=== PATIENT | female | born 1975 | race Caucasian/White ===

== ENCOUNTER 2019-06-03 11:22 | Emergency (ER) | payer BC ==
--- OUTSIDE RECORDS SUMMARY | 2019-06-03 11:57 | XMS REPORT | Continuity of Care Document ---
:1975 External Reference #:[id number] Author Name Shady Mcdonnell M.D. Address [address] [facility] [address] [place] [address] Care Team Providers Name Role Phone Dany/Ilir [place] - Physical Care Team Information Catalogue Compiler [phone] Therapist Temo Manzo Md - Care Team Information Catalogue Compiler [phone] Neurological Surgery Problems Active Problems Provider Date Disorder of lipid metabolism Shady Mcdonnell M.D. Onset: 01/31/2006 Impaired fasting glycaemia Shady Mcdonnell M.D. Onset: 06/17/2009 Dysthymia Shady Mcdonnell M.D. Onset: 06/22/2012 Generalized anxiety disorder Shady Mcdonnell M.D. Onset: 06/22/2012 Morbid obesity Shady Mcdonnell M.D. Onset: 06/22/2012 Social History Type Date Description Comments Sex Unknown Tobacco Use Start: Unknown Tobacco Of Any Kind Denies Use Tobacco Use Reviewed: 04/21/19 Denies Cigarette Use Smoking Status Reviewed: 04/21/19 Denies Cigarette Use ETOH Use Currently consumes 1 glass wine/night, alcohol more than that ~monthly. Sun Exposure moderate amount of sun exposure Sun Exposure Uses sunscreen Seat Belt/Car Seat always uses seat belt Allergies, Adverse Reactions, Alerts Description No Known Drug Allergies Medications Active Medications SIG Qnty Indications Ordering Date Provider Metronidazole apply twice a day 45units L71.0 Sathya, 06/15/2017 0.75% to affected areas Lewis Caruso Cream on face (for perioral dermatitis or acne rosacea) Multivitamins 1 by mouth every Unknown 08/16/2014 Capsules day Sertraline HCL Take One Tablet By 30tabs F41.1 Sathya, 02/20/2012 100mg Mouth Every Day Lewis Caruso Tablets For Mood F34.1 Medications Administered in Office Medication SIG Qnty Indications Ordering Provider Date TB Intradermal Test Shady Mcdonnell M.D. 12/31/2003 Injection Immunizations CPT Code Status Date Vaccine Lot # [id number] Given 02/21/2018 Influenza Virus Vaccine, Quadrivalent, Split, [id number] Preservative Free [id number] Given 10/26/2016 Influenza Virus Vaccine, Quadrivalent, Split, [id number] Preservative Free 07891 Given 01/18/2016 Influenza Virus Vaccine, Quadrivalent, Split, [id number] Preservative Free 43856 Given 12/21/2012 Flu, Split Virus 3Yrs [id number] 11999 Given 12/08/2011 Flu, Split Virus 3Yrs [id number] 81952 Given 02/09/2010 Adacel or Boostrix, [id number] 17356 Given 03/08/2001 Flu, Split Virus 3Yrs Vital Signs Date Vital Result Comment 04/21/2019 8:57am BP Systolic 122 mmHg BP Diastolic 80 mmHg Height 63.5 inches 5'3.50" Weight 212.00 lb BMI (Body Mass Index) 37.0 kg/m2 10/19/2018 4:16pm BP Systolic 124 mmHg BP Diastolic 80 mmHg Height 63 inches 5'3" Weight 202.00 lb BMI (Body Mass Index) 35.8 kg/m2 Results Test Acquired Date Facility Test Result H/L Range Note Laboratory test finding 04/21/2019 In House Hemoglobin A1c 5.4 Procedures Date Code Description Status 04/18/2018 [id number] Mammogram Completed Medical Devices Description No Information Available Encounters Description No Information Available Assessments Date Code Description Provider 04/21/2019 R73.01 Impaired fasting glucose Shady Mcdonnell M.D. 04/21/2019 F41.1 Generalized anxiety disorder Shady Mcdonnell M.D. 04/21/2019 E66.9 Obesity, unspecified Shady Mcdonnell M.D. Plan of Treatment 04/21/2019 - Shady Mcdonnell M.D.R73.01 Impaired fasting glucoseComments:A1c 5.4%F41.1 Generalized anxiety disorderFollow up:RTO 6 months w/ A1cE66.9 Obesity , unspecifiedComments:COunseled re diet, importance of not bringing unhealthy snacks in to the house. Encouraged her to consider participationg in OA. Functional Status Description No Information Available Mental Status Description No Information Available Referrals Description No Information Available
--- NOTE | 2019-06-03 12:01 | UC ---
Complaint Female HPI - HPI Summary HPI Summary: 43 yo woman with 3 day hx of cloudy urine, with increasing dysuria and frequency the following day. She had a positive home test for UTI using a kit obtained from the pharmacy, and contacted her OB --started Macrobid on 06/01/19 without relief of symptoms following 2 days of treatment. --onset of fever evening of 05/31 with temp up to 103 --persistent fever which responds to acetaminophen. --has persistent back pain and late dysuria; back pain is bilateral and symmetrical No other focus of infection, no respiratory symptoms. Feels nauseated but has not vomited, decreased appetite, no diarrhea. - History Of Current Complaint Stated Complaint: URINARY Time Seen by Provider: 06/03/19 12:00 Hx Obtained From: Patient Hx Last Menstrual Period: 01/03/17 Onset/Duration: Gradual Onset, Lasting Days - 4 Timing: Intermittent Severity Initially: Mild Severity Currently: Moderate Character: Dull - ache in low back Aggravating Factor(s): Urination - late dysuria Associated Signs And Symptoms: Positive: Vaginal Discharge - had mild irritation externally yesterday and she has used external nystatin., Nausea. Negative: Vomiting(# Of Episodes =) - Risk Factors Ectopic Risk Factor: Negative - Allergies/Home Medications Allergies/Adverse Reactions: Allergies Allergy/AdvReac Type Severity Reaction Status Date / Time No Known Allergies Allergy Verified 06/03/19 12:16 Home Medications: Home Medications Sertraline* [Zoloft*] 100 mg PO DAILY 05/24/15 [History Confirmed 06/03/19] Nitrofurantoin Monohyd/M-Cryst [Macrobid 100 mg Capsule] 1 cap BID 06/03/19 [ History Confirmed 06/03/19] Sulfamethox/Trimethoprim DS* [Bactrim DS 800/160 TAB*] 1 tab PO BID #14 tab [Rx] PMH/Surg Hx/FS Hx/Imm Hx Previously Healthy: Yes Psychological History: Anxiety, Depression - Surgical History Surgical History: Yes Surgery Procedure, Year, and Place: C-SECTIONS -3. D&C - Family History Known Family History: Positive: Cardiac Disease, Hypertension, Diabetes - Social History Occupation: Employed Full-time - does home daycare Lives: With Family Alcohol Use: Occasionally Substance Use Type: None Smoking Status (MU): Never Smoked Tobacco Type: Cigarettes Have You Smoked in the Last Year: No When Did the Patient Quit Smoking/Using Tobacco: 15 YRS AGO - Immunization History Most Recent Influenza Vaccination: NOT IN Review of Systems All Other Systems Reviewed And Are Negative: Yes Constitutional: Positive: Fever, Chills Skin: Positive: Negative Eyes: Positive: Negative ENT: Positive: Negative Respiratory: Positive: Negative. Negative: Shortness Of Breath, Cough Cardiovascular: Positive: Negative Gastrointestinal: Positive: Nausea. Negative: Abdominal Pain, Vomiting, Diarrhea Genitourinary: Positive: Dysuria, Urgency, Vaginal/Penile Discharge Motor: Positive: Negative Neurovascular: Positive: Negative Musculoskeletal: Positive: Myalgia Neurological/Mental Status: Positive: Negative. Negative: Headache Psychological: Positive: Anxious - has missed 2 doses of sertraline and feels rattled. Is Patient Immunocompromised?: No Physical Exam Triage Information Reviewed: Yes Appearance: Well-Appearing, No Pain Distress, Obese Eye Exam: Normal ENT: Positive: Pharynx normal Dental Exam: Normal Neck: Positive: Supple, Nontender, No Lymphadenopathy Respiratory: Positive: Lungs clear, Normal breath sounds Cardiovascular: Positive: RRR, No Murmur Abdomen Description: Positive: Nontender, No Organomegaly, Soft, Other: - pain over low lumbar area bilaterally. Negative: CVA Tenderness (R), CVA Tenderness (L), Distended, Guarding Bowel Sounds: Positive: Present Musculoskeletal Exam: Normal Neurological Exam: Normal Psychological Exam: Normal Skin Exam: Normal Diagnostics - Laboratory Lab Results: UA with rbc and protein only. Complaint Female Dx - Course Course Of Treatment: Culture ordered. Hx is consistent with UTI, and fever suggests possible pyelo. She has no other focus of infection. Will stop macrobid and begin bactrim. - Differential Dx/Diagnosis Differential Diagnosis/HQI/PQRI: Ureteral Stone, Urinary Tract Infection Provider Diagnosis: UTI (urinary tract infection) Discharge ED - Sign-Out/Discharge Documenting (check all that apply): Patient Departure All imaging exams completed and their final reports reviewed: No Studies - Discharge Plan Condition: Stable Disposition: HOME Prescriptions: Sulfamethox/Trimethoprim DS* [Bactrim DS 800/160 TAB*] 1 tab PO BID #14 tab Patient Education Materials: Urinary Tract Infection in Women (ED) Referrals: Shady Mcdonnell MD [Primary Care Provider] - Additional Instructions: STOP use of macrodantin and begin use of bactrim. Increase fluids, with intake of at least 2 liters of water per day. Keep track of your temperature; if you have increasing fever or persistent fever present on 06/04, I suggest follow up in the emergency room. Urine culture has been sent. You will be notified if a change of antibiotics is needed. - Billing Disposition and Condition Condition: STABLE Disposition: Home
[2019-06-03 12:15] VITALS: BP 146/83
== END 2019-06-03 12:34 | disposition home or self-care (01) ==
LOC: UCCORT 11:22
DX: N39.0 Urinary tract infection, site not specified (principal); N89.8 Other specified noninflammatory disorders of vagina; R11.0 Nausea; F41.9 Anxiety disorder, unspecified; F32.9 Major depressive disorder, single episode, unspecified; Z79.899 Other long term (current) drug therapy
CPT/HCPCS: 81003; 87086; 99212; G0463